=== PATIENT | male | born 1970 | race Caucasian/White ===

== ENCOUNTER 2016-11-08 06:00 | Inpatient (IN) | payer OTHER ==
[~2016-11-08] VITALS: Ht 180.3 cm; Wt 86.2 kg
--- NOTE | ~2016-11-08 | HP ---
Unit #: [id number] #: [id number] Patient: JAKY DELGADO [id number] [place] [address] [id number] MR#: [id number] NAME: JAKY DELGADO. ROOM: [facility] Age: 45 Sex: M Admission Date: 11/08/2016 : 1970 Attending Physician: Aram Siegel M.D. Admitting Physician: Aram Siegel M.D. Primary Care Physician: Generic Doctor Not In System HISTORY AND PHYSICAL HISTORY OF PRESENT ILLNESS The patient is a 45-year-old male admitted to [address] [place] [address] on 11/08/2016 for suicidal ideation. PAST MEDICAL HISTORY 1. Left broken clavicle. 2. Asthma. PAST SURGICAL HISTORY 1. Bilateral knee. 2. Right hand. 3. Right foot. 4. Left shoulder. ALLERGIES Flexeril. SOCIAL HISTORY He is unemployed. He is homeless. He smokes 4 cigarettes a day and drinks 12 beers on weekends. FAMILY HISTORY Noncontributory. REVIEW OF SYSTEMS CONSTITUTIONAL: No fever or chills. HEENT: Denies any sore throat, ear pain or runny nose. CARDIOVASCULAR: Denies chest pain, irregular heart rhythm or palpitations. CHEST: Denies shortness of breath or cough. No hemoptysis. GASTROINTESTINAL: Denies nausea, vomiting, diarrhea or chronic constipation. ENDOCRINE: Denies history of increased thirst or urination. No recent significant weight loss or gain. GENITOURINARY: Denies dysuria, frequency, or hematuria. SKIN: Denies any rashes. HEMATOLOGIC: Denies history of increased bleeding or bruising. MUSCULOSKELETAL: Denies any hot, swollen joints. No generalized muscle pain. NEUROLOGIC: Denies problems with vision or speech. No frequent, severe headaches. No numbness, tingling or weakness in any extremities. Denies loss of bladder or bowel control. CURRENT MEDICATIONS Unit #: [id number] #: [id number] Patient: JAKY DELGADO 1. [place]. 2. Lexapro. 3. Neurontin. 4. Albuterol. 5. Zyrtec. 6. Flonase. PHYSICAL EXAMINATION GENERAL: He is awake, alert, oriented in no acute distress. VITAL SIGNS: Temperature 98.4, heart rate 80, respirations 18, blood pressure 116/78. HEIGHT: 6 feet 0. WEIGHT: 270 pounds. SKIN: Warm and dry without rash or lesion. HEENT: Normocephalic. TMs not viewed. Oral and nasal passages clear. Conjunctivae clear. PERRLA. EOMs intact. NECK: Supple without lymphadenopathy or thyromegaly. HEART: Regular rate and rhythm without murmur. LUNGS: Wheezing in all lung [place]. ABDOMEN: Soft, nontender. : Not done. EXTREMITIES: No evidence of cyanosis, clubbing or edema. Moves all without focal deficit. NEUROLOGICAL: Grossly within normal limits. Cranial Nerves: II: Visual [place] are intact. III, IV AND : Extraocular movements are intact. Pupils are equal, round and reactive to light. V: Facial sensation is grossly normal. VII: Facial movements and expression are normal. VIII: Auditory acuity grossly intact. IX, X: Uvula is midline. Phonation is normal. XI: Patient shrugs shoulders and turns head normally. XII: Tongue protrudes in the midline. Sensory and Motor Function: Sensory and motor sensation is grossly normal. Motor: moves all extremities well. Coordination: Gait is normal. Deep Tendon Reflexes: Intact. IMPRESSION 1. Psychiatric admission. 2. Asthma. 3. History of left broken clavicle. RECOMMENDATIONS PSYCHIATRIC: Per psychiatrist. MEDICAL: No contraindication to participate in facility's activities. MEDICAL PROGNOSIS Good. MEDICAL CONDITION Stable. Dictated by... Jassi Lockett A.P.R.N. /[facility] Unit #: [id number] #: [id number] Patient: JAKY DELGADO TD: 11/08/2016 16:06 JOB #: [id number] HISTORY AND PHYSICAL Page 1 of 1 X JASSI LOCKETT APRN HISTORY AND PHYSICAL
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
[~2016-11-08 06:00] MED LIST: ACETAMINOPHEN PO; ALBUTEROL17 G1 IH; COUMADIN5 MG PO; LIPITOR PO; LOVENOX120 MG/0.8 INJ; MEDROL4 MG/DOSE- PO; METHADONE PO; NORVASC PO; VICODIN 5/1 TAB 5/50 PO
[2016-11-11 13:09] LABS: AMPHETAMINE POS (NEG); BARBITURATES NEG (NEG); BENZODIAZEPINES NEG (NEG); COCAINE NEG (NEG); MARIJUANA NEG (NEG); OPIATES POS (NEG); TRICYCLIC ANTIDEPRESSANTS NEG (NEG); U METHADONE NEG (NEG)
== END 2016-11-13 12:45 | disposition home or self-care (01) | DRG 885 ==
LOC: P2L 08:09
PROVIDERS: Psychiatry & Neurology Psychiatry
DX: F33.2 Major depressive disorder, recurrent severe without psychotic features (principal); R45.851 Suicidal ideations; J45.909 Unspecified asthma, uncomplicated; Z56.0 Unemployment, unspecified; Z59.0 Homelessness; F17.210 Nicotine dependence, cigarettes, uncomplicated
CPT/HCPCS: 80307; 90732